=== PATIENT | female | born 1970 | race African-American/Black ===

== ENCOUNTER 2016-11-16 14:55 | Emergency (ER) | payer MEDICAID ==
--- NOTE | 2016-11-16 16:11 | ER Document Report ---
ED Medical Screen (RME) - General Chief Complaint: Breathing Difficulty Stated Complaint: SHORTNESS OF BREATH Time Seen by Provider: 11/16/16 16:08 Notes: Patient states that she has scleroderma. She states for approximately 2 weeks she has had increasing cough and shortness of breath with exertion. She denies any pain. She states she has been using her inhaler with no relief. She does smoke. She denies any history of COPD or asthma. No history of congestive heart failure. She states she has had a cough productive of green sputum. TRAVEL OUTSIDE OF THE [place] IN LAST 30 DAYS: No - Related Data Allergies/Adverse Reactions: No Known Allergies Allergy (Verified 11/16/16 15:14) Past Medical History - Social History Chew tobacco use (# tins/day): No Frequency of alcohol use: None Drug Abuse: None Renal/ Medical History: Denies: Hx Peritoneal Dialysis Psychiatric Medical History: Denies: Hx Depression Past Surgical History: Reports: Hx Section - x3, Hx Hysterectomy - Immunizations Hx Diphtheria, Pertussis, Tetanus Vaccination: - unknown Physical Exam - Vital signs Vitals: Temp Pulse Resp BP Pulse Ox 98.1 F 81 13 94/68 L 100 11/16/16 15:15 11/16/16 15:15 11/16/16 15:15 11/16/16 15:15 11/16/16 15:15 Course - Vital Signs Vital signs: Temp Pulse Resp BP Pulse Ox 98.1 F 81 13 94/68 L 100 11/16/16 15:15 11/16/16 15:15 11/16/16 15:15 11/16/16 15:15 11/16/16 15:15
[2016-11-16 16:59] LABS: ABSOLUTE BASOPHILS # (AUTO) 0.1 10^3/uL (0.0-0.2); ABSOLUTE EOSINOPHILS # (AUTO) 0.3 10^3/uL (0.0-0.6); ABSOLUTE LYMPHOCYTES (AUTO) 1.8 10^3/uL (0.5-4.7); ABSOLUTE MONOCYTES (AUTO) 0.8 10^3/uL (0.1-1.4); ABSOLUTE NEUT (AUTO) 6.6 10^3/uL (1.7-8.2); BASOPHILS % (AUTO) 0.5 % (0-2); EOSINOPHILS % (AUTO) 2.7 % (0-6); HEMATOCRIT 35.6 % (36.0-47.0); HEMOGLOBIN 11.5 g/dL (12.0-15.5); HGB HCT DIFFERENCE -1.1; MEAN CORPUSCULAR HGB CONC 32.3 g/dL (32.0-36.0); MEAN CORPUSCULAR VOLUME 90 fl (80-97); MONOCYTES % (AUTO) 8.6 % (3-13); RED BLOOD COUNT 3.97 10^6/uL (3.72-5.28); RED CELL DISTRIBUTION WIDTH 15.5 % (11.5-14.0); SEGMENTED NEUTROPHILS % (AUTO) 69.2 % (42-78); WHITE BLOOD COUNT 9.5 10^3/uL (4.0-10.5)
--- NOTE | 2016-11-16 17:09 | RADIOLOGY REPORT (SQ) ---
EXAM DESCRIPTION: CHEST PA/LAT COMPLETED DATE/TIME: 11/16/2016 4:23 pm REASON FOR STUDY: sob COMPARISON: AP chest 06/24/2015 CT chest 06/24/2015 EXAM PARAMETERS: NUMBER OF VIEWS: two views TECHNIQUE: Digital Frontal and Lateral radiographic views of the chest acquired. RADIATION DOSE: NA LIMITATIONS: none FINDINGS: LUNGS AND PLEURA: No opacities, masses or pneumothorax. No pleural effusion. MEDIASTINUM AND HILAR STRUCTURES: No masses or contour abnormalities. HEART AND VASCULAR STRUCTURES: Heart normal size. No evidence for failure. BONES: No acute findings. HARDWARE: None in the chest. OTHER: No other significant finding. IMPRESSION: NO SIGNIFICANT RADIOGRAPHIC FINDING IN THE CHEST. TECHNICAL DOCUMENTATION: JOB ID: [id number] [employer]- All Rights Reserved
[2016-11-16 17:28] LABS: ALANINE AMINOTRANSFERASE 18 U/L (9-52); ALBUMIN 4.1 g/dL (3.5-5.0); ALKALINE PHOSPHATASE 66 U/L (38-126); ANION GAP 12 (5-19); ASPARTATE AMINO TRANSFERASE 18 U/L (14-36); BILIRUBIN,DIRECT 0.4 mg/dL (0.0-0.4); BILIRUBIN,TOTAL 0.4 mg/dL (0.2-1.3); BLOOD UREA NITROGEN 22 mg/dL (7-20); CALCIUM 9.8 mg/dL (8.4-10.2); CARBON DIOXIDE 17 mmol/L (22-30); CHLORIDE 109 mmol/L (98-107); CREATININE RESULT 1.13 mg/dL (0.52-1.25); GLUCOSE 84 mg/dL (75-110); POTASSIUM 4.7 mmol/L (3.6-5.0); SODIUM 137.7 mmol/L (137-145); TOTAL PROTEIN 7.9 g/dL (6.3-8.2)
[2016-11-16] MEDS ORDERED: IPRATROPIUM/ALBUTEROL 0.5-2.5 MG/3 ML AMPUL NEB ONE (18:54)
[2016-11-16] MEDS ORDERED: PREDNISONE 20 MG TABLET PO ONE (18:54)
--- NOTE | 2016-11-16 19:01 | ER Document Report ---
ED Respiratory Problem - General Chief Complaint: Breathing Difficulty Stated Complaint: SHORTNESS OF BREATH Time Seen by Provider: 11/16/16 16:08 Notes: The patient is a 46-year-old female, past medical history scleroderma, decreased lung capacity, presents with several days of cough, shortness of breath and now 2 days of green mucus. Her doctor of podiatry is in [facility]. Patient denies chest pain, syncope, leg swelling, nausea, vomiting, fevers, recent travel or back pain. TRAVEL OUTSIDE OF THE [place] IN LAST 30 DAYS: No - Related Data Allergies/Adverse Reactions: No Known Allergies Allergy (Verified 11/16/16 15:14) Past Medical History - General Information source: Patient - Social History Smoking Status: Current Every Day Smoker Chew tobacco use (# tins/day): No Frequency of alcohol use: None Drug Abuse: None Family History: Reviewed & Not Pertinent Patient has suicidal ideation: No Patient has homicidal ideation: No Renal/ Medical History: Denies: Hx Peritoneal Dialysis Psychiatric Medical History: Denies: Hx Depression Past Surgical History: Reports: Hx Section - x3, Hx Hysterectomy - Immunizations Hx Diphtheria, Pertussis, Tetanus Vaccination: - unknown Hx Pneumococcal Vaccination: 10/26/15 Review of Systems - Review of Systems Notes: REVIEW OF SYSTEMS: CONSTITUTIONAL: -fevers, -chills EENT: -eye pain, -difficulty swallowing, -nasal congestion CARDIOVASCULAR:-chest pain, -syncope. RESPIRATORY: +cough, +SOB GASTROINTESTINAL: -abdominal pain, - nausea, -vomiting, -diarrhea GENITOURINARY: -dysuria, -hematuria MUSCULOSKELETAL: -back pain, -neck pain SKIN: -rash or skin lesions. HEMATOLOGIC: -easy bruising or bleeding. LYMPHATIC: -swollen, enlarged glands. NEUROLOGICAL: -altered mental status or loss of consciousness, -headache, - neurologic symptoms PSYCHIATRIC: -anxiety, -depression. ALL OTHER SYSTEMS REVIEWED AND NEGATIVE. Physical Exam - Vital signs Vitals: Temp Pulse Resp BP Pulse Ox 98.1 F 81 13 94/68 L 100 11/16/16 15:15 11/16/16 15:15 11/16/16 15:15 11/16/16 15:15 11/16/16 15:15 - Notes Notes: PHYSICAL EXAMINATION: GENERAL: Well-appearing, well-nourished and in no acute distress. HEAD: Atraumatic, normocephalic. EYES: Pupils equal round and reactive to light, extraocular movements intact, sclera anicteric, conjunctiva are normal. ENT: nares patent, oropharynx clear without exudates. Moist mucous membranes. NECK: Normal range of motion, supple without lymphadenopathy LUNGS: No respiratory distress. Mild end-expiratory wheezes. HEART: Regular rate and rhythm without murmurs ABDOMEN: Soft, nontender, normoactive bowel sounds. No guarding, no rebound. No masses appreciated. EXTREMITIES: Normal range of motion, no pitting or edema. No cyanosis. NEUROLOGICAL: Cranial nerves grossly intact. Normal speech, normal gait. Normal sensory and motor exams. PSYCH: Normal mood, normal affect. SKIN: Warm, Dry, normal turgor, no rashes or lesions noted. Course - Re-evaluation Re-evalutation: Patient feels much better after steroids and DuoNeb. Instructed patient to continue 4 more days of prednisone and refilled her albuterol. She will follow with her doctor of podiatry. Considered PE, but patient is not hypoxic, tachycardic and is PERC negative. Patient's blood pressure is high 90s/65, which she said is normal for her. Instructed her to drink plenty of fluids. Given strict return precautions and she understands. - Vital Signs Vital signs: Temp Pulse Resp BP Pulse Ox 97.6 F 77 13 126/88 H 96 11/16/16 20:11 11/16/16 20:11 11/16/16 15:15 11/16/16 20:11 11/16/16 20:11 - Laboratory Result Diagrams: 11/16/16 16:25 11/16/16 16:25 Laboratory results interpreted by me: 11/16/16 11/16/16 16:25 16:25 Hgb 11.5 L Hct 35.6 L RDW 15.5 H Chloride 109 H Carbon Dioxide 17 L BUN 22 H Est GFR (Non-Af Amer) 52 L - Diagnostic Test Radiology reviewed: Image reviewed, Reports reviewed Radiology results interpreted by me: CXR: NAD - EKG Interpretation by Me EKG shows normal: Sinus rhythm, [place], Intervals, QRS Complexes, ST-T Waves Rate: Normal Discharge - Discharge Clinical Impression: Bronchospasm with bronchitis, acute Condition: Stable Disposition: HOME, SELF-CARE Additional Instructions: BRONCHITIS WITH BRONCHOSPASM (WHEEZING): You have bronchitis with bronchospasm (wheezing). Sometimes people develop wheezing with a chest cold. This occurs either because of an underlying tendency toward asthma or because the virus itself irritates the bronchial tubes. This irritation causes cough, shortness of breath, and wheezing. Emergency treatment of bronchospasm may include adrenaline shots or bronchodilator aerosol. You may feel lightheaded and have a rapid pulse for an hour or two. Rest and get plenty of fluids. At home, we'll treat you with a bronchodilator inhaler. Corticosteroids may be required for some patients. Until you recover, avoid chemical fumes, dusts, pollens, and exercising in very cold or dry air. If you smoke, stop now! Most cases of bronchitis get better without antibiotics. We prescribe antibiotics when we believe bacteria are damaging your airways, or if there's high risk the bronchitis will worsen into pneumonia. Increase your fluid intake. A cool mist humidifier may make your lungs more comfortable. An expectorant (cough medicine that loosens phlegm) can help. Repeated episodes of bronchitis and bronchospasm may result in lung damage -- for example, chronic bronchitis, recurrent pneumonias, or emphysema. If you develop a fever, increased wheezing, chest pain, or severe shortness of breath, you should contact the doctor immediately. INHALED BRONCHODILATORS: You have received a treatment of and/or prescription for an inhaled bronchodilator -- a medication which stimulates the airways in the lung to dilate. This improves the flow of air in asthma, bronchitis, and emphysema. These medicines have some similarity to adrenaline, and can cause similar side effects: shakiness, racing heart, and a sense of nervousness. These side effects decrease with time. Contact your doctor if these side effects are severe. Do not over-use the medicine. Too-frequent use of the inhaler may make it ineffective. Call your doctor if the inhaler is not controlling your symptoms at the prescribed doses. STEROID MEDICATION: You have been given an injection of or oral medicine of the cortisone/ steroid class. This medication is used to control inflammation or allergy. Jackson t is usually only given for a short period of time, until the acute process subsides. There are usually no side effects from short-term use of cortisone-like medications. Some persons feel an increased sense of well-being and are not sleepy at bedtime. Long-term use of cortisone medications is best avoided, unless required for a severe condition. If your condition does not remit, or relapses after the course of corticosteroid medication, you should consult your physician. USE OF ACETAMINOPHEN (Tylenol): Acetaminophen may be taken for pain relief or fever control. It's much safer than aspirin, offering a wider range of "safe" dosages. It is safe during . Some brand names are Tylenol, Panadol, Datril, Anacin 3, Tempra, and Liquiprin. Acetaminophen can be repeated every four hours. The following are maximum recommended dosages: >89 pounds or adults 650 mg to 900 mg Acetaminophen can be repeated every four hours. Maximum dose not to exceed 4000 mg a day. SMOKING: If you smoke, you should stop smoking. The tar and chemicals in cigarette smoke are harmful. Smoking has been shown to cause: emphysema chronic bronchitis lung cancer mouth and throat cancer stomach and pancreas cancer premature aging defects In addition, smoking increases ear and lung infections in children of smokers. FOLLOW-UP CARE: If you have been referred to a physician for follow-up care, call the physician s office for an appointment as you were instructed or within the next two days. If you experience worsening or a significant change in your symptoms, notify the physician immediately or return to the Emergency Department at any time for re-evaluation. Prescriptions: Albuterol Sulfate [Proair HFA Inhalation Aerosol 8.5 gm MDI] 2 puff IH Q4H PRN # 1 mdi PRN Reason: Prednisone [Deltasone 20 mg Tablet] 3 tab PO DAILY 5 Days tablet Referrals: TERESO STAUFFER MD [Primary Care Provider] - Follow up as needed
[2016-11-16 20:15] VITALS: BP 126/88
--- NOTE | 2016-11-16 21:54 | EKG REPORT ---
SEVERITY:- NORMAL ECG - SINUS RHYTHM : Confirmed by: Siddhartha Funes 16-Nov-2016 21:52:36
== END 2016-11-16 20:11 | disposition home or self-care (01) ==
LOC: ER 14:55
DX: J20.9 Acute bronchitis, unspecified (principal); M34.9 Systemic sclerosis, unspecified; R06.02 Shortness of breath; R05 Cough; F17.200 Nicotine dependence, unspecified, uncomplicated
CPT/HCPCS: 93005; 94640; 99285; 36415; 85025; 80053; 84484; 71020; 93010; J7512; J7620

== ENCOUNTER 2018-09-19 18:52 | Emergency (ER) | payer MEDICARE, MEDICAID ==
[2018-09-19] MEDS ORDERED: ONDANSETRON HCL INJ/PF 4 MG/2 ML SDV IV ONE (20:38)
[2018-09-19] MEDS ORDERED: NORMAL SALINE 1000 ML 1,000 ML IV ONE (20:38)
[2018-09-19] MEDS ORDERED: DIPHENHYDRAMINE HCL 50 MG/ML VIAL IV ONE (20:41)
[2018-09-19] MEDS ORDERED: PROCHLORPERAZINE EDISYLATE INJ 10 MG/2 ML VIAL IV ONE (20:41)
--- NOTE | 2018-09-19 20:41 | ER Document Report ---
ED Medical Screen (RME) - General Chief Complaint: Cough Stated Complaint: COUGH Time Seen by Provider: 09/19/18 20:33 Primary Care Provider: TERESO STAUFFER MD [Primary Care Provider] - Follow up as needed Information source: Patient Notes: Patient presents complaining of cold symptoms for the past 2 weeks. Patient had productive cough with green sputum and intermittent fevers. Patient states she has had headache that has seemed to have worsened to the right side of her head. Patient reports nausea and vomiting and inability to keep her usual medications down for the past 2 days. She was supposed to have an outpatient MRI for evaluation of headache pain and intermittent left upper extremity weakness. Patient states she will occasionally just have a drop of the wrist. Patient does have a history of scleroderma and lupus like symptoms. I have greeted and performed a rapid initial assessment of this patient. A comprehensive ED assessment and evaluation of the patient, analysis of test results and completion of the medical decision making process will be conducted by additional ED providers. TRAVEL OUTSIDE OF THE [place] IN LAST 30 DAYS: No - Related Data Allergies/Adverse Reactions: No Known Allergies Allergy (Verified 09/19/18 18:58) Past Medical History Renal/ Medical History: Denies: Hx Peritoneal Dialysis Psychiatric Medical History: Denies: Hx Depression Past Surgical History: Reports: Hx Section - x3, Hx Hysterectomy - Immunizations Hx Diphtheria, Pertussis, Tetanus Vaccination: - unknown Physical Exam - Vital signs Vitals: Temp Pulse Resp BP Pulse Ox 99.1 F 89 20 140/88 H 95 09/19/18 19:46 09/19/18 19:46 09/19/18 19:46 09/19/18 19:46 09/19/18 19:46 - Respiratory Respiratory status: No respiratory distress Breath sounds: Productive cough, Rhonchi - Neurological Katelyn Coma Scale Eye Opening: Spontaneous [place] Coma Scale Verbal: Oriented Katelyn Coma Scale Motor: Obeys Commands Katelyn Coma Scale Total: 15 Course - Re-evaluation Re-evalutation: 09/19/18 20:40 Contacted MRI and discuss orders that patient had as an outpatient today that she was unable to complete. They stated that she had an MRI noncontrast of the head ordered. We will place this order and tonight given her persistent headache symptoms. - Vital Signs Vital signs: Temp Pulse Resp BP Pulse Ox 99.1 F 89 20 140/88 H 95 09/19/18 19:46 09/19/18 19:46 09/19/18 19:46 09/19/18 19:46 09/19/18 19:46 Doctor's Discharge - Discharge Referrals: TERESO STAUFFER MD [Primary Care Provider] - Follow up as needed
--- NOTE | 2018-09-19 21:39 | RADIOLOGY REPORT (SQ) ---
EXAM DESCRIPTION: XR CHEST 2 VIEWS COMPLETED DATE/TME: 09/19/2018 20:44 CLINICAL HISTORY: 48 years, Female, cough COMPARISON: 11/16/2016 chest NUMBER OF VIEWS: 2 TECHNIQUE: 2 view chest LIMITATIONS: None. FINDINGS: Heart size is normal. Slightly coarsened interstitial changes bilaterally. Findings could reflect interstitial pneumonitis, with interstitial edema not excluded entirely. No pneumothorax. Lungs are otherwise clear IMPRESSION: Coarse interstitial changes, likely reflecting interstitial pneumonitis. copyright 2010 [employer]- All Rights Reserved
--- NOTE | 2018-09-19 23:18 | RADIOLOGY REPORT (SQ) ---
EXAM DESCRIPTION: MRI brain without contrast Completed date and time 09/19/2018 10:26 PM CLINICAL HISTORY: [place], intermittent L arm weakness COMPARISON: None TECHNIQUE: Multiplanar images of the brain were obtained without the administration of intravenous contrast FINDINGS: Ventricles and sulci appear within normal limits for the patient's age. No evidence of midline shift or mass effect. No abnormal parenchymal signal noted. No areas of restricted diffusion to suggest acute infarct. There is mucosal thickening in ethmoid air cells, left frontal sinus maxillary and sphenoid sinus with a tiny amount of fluid. No extra axial fluid collection. Prominent perivascular spaces in the high frontoparietal regions bilaterally. Symmetric flow voids in the carotid siphons. IMPRESSION: No evidence of acute infarct Inflammatory sinus disease
[2018-09-20] MEDS ORDERED: PROCHLORPERAZINE EDISYLATE INJ 10 MG/2 ML VIAL ONE (00:42)
[2018-09-20] MEDS ORDERED: DIPHENHYDRAMINE HCL 50 MG/ML VIAL ONE (00:42)
[2018-09-20] MEDS ORDERED: BENZONATATE 100 MG CAPSULE PO ONE (01:55)
[2018-09-20] MEDS ORDERED: ONDANSETRON ODT 4 MG TAB (6 TAB/ER DISP) PO PRN (02:46)
--- NOTE | 2018-09-20 02:48 | ER Document Report ---
ED General - General Chief Complaint: Cough Stated Complaint: COUGH Time Seen by Provider: 09/19/18 20:33 Primary Care Provider: TERESO STAUFFER MD [Primary Care Provider] - Follow up in 3-5 days Notes: Patient is a pleasant 48-year-old female with a history of scleroderma who presents with complaint of vomiting. She has had the cough for last several days. Today she started having some vomiting and was unable to hold on her medications. She says because of her scleroderma she does have chronic lung disease her symptoms causes her to cough and have these exacerbations. She denies any wheezing. She is a non-smoker. No fevers. No other complaints at this time. TRAVEL OUTSIDE OF THE [place] IN LAST 30 DAYS: No - Related Data Allergies/Adverse Reactions: No Known Allergies Allergy (Verified 09/19/18 18:58) Past Medical History - General Information source: Patient - Social History Smoking Status: Unknown if Ever Smoked Frequency of alcohol use: None Drug Abuse: None Family History: Reviewed & Not Pertinent Renal/ Medical History: Denies: Hx Peritoneal Dialysis Psychiatric Medical History: Denies: Hx Depression Past Surgical History: Reports: Hx Section - x3, Hx Hysterectomy - Immunizations Hx Diphtheria, Pertussis, Tetanus Vaccination: - unknown Hx Pneumococcal Vaccination: 10/26/15 Review of Systems - Review of Systems Notes: My Normal Review Basic REVIEW OF SYSTEMS: CONSTITUTIONAL : Denies fever, chills, or sweats. Denies recent illness. EENT: Denies eye, ear, throat, or mouth pain or symptoms. Denies nasal or sinus congestion. CARDIOVASCULAR: Denies chest pain. RESPIRATORY: Cough GASTROINTESTINAL: Denies abdominal pain. vomiting MUSCULOSKELETAL: Denies neck or back pain or joint pain or swelling. SKIN: Denies rash or skin lesions. NEUROLOGICAL: Denies altered mental status or loss of consciousness. ALL OTHER SYSTEMS REVIEWED AND NEGATIVE. Physical Exam - Vital signs Vitals: Temp Pulse Resp BP Pulse Ox 99.1 F 89 20 140/88 H 95 09/19/18 19:46 09/19/18 19:46 09/19/18 19:46 09/19/18 19:46 09/19/18 19:46 - Notes Notes: General Appearance: Well nourished, alert, cooperative, no acute distress, no obvious discomfort. Well-appearing. Vitals: reviewed, See vital signs table. Eyes: PERRL, EOMI, Conjuctiva clear Mouth: No decreasd moisture Throat: No tonsillar inflammation, No airway obstruction, No lymphadenopathy Neck: Supple, no neck tenderness, No thyromegaly Lungs: No wheezing, No rales, No rhonci, No accessory muscle use, good air exchange bilaterally. Heart: Normal rate, Regular rythm, No murmur, no rub Abdomen: Normal BS, soft, No rigidity, No abdominal tenderness, No guarding, no rebound, no abdominal masses, no organomegaly Extremities: good pulses in all extremities, no swelling or tenderness in the extremities, no edema. Skin: warm, dry, appropriate color, no rash Neuro: speech clear, oriented x 3, normal affect, responds appropriately to questions. Course - Re-evaluation Re-evalutation: 09/20/18 05:52 Patient is feeling improved. She says she feels much improved after the IV fluids and Zofran. She looks very well. Her lung echeverria are clear. Feel she safe to be discharged home. I will prescribe her Zofran to take for nausea. She has no abdominal pain and no fever. He denies any indication for CT scan or imaging of her abdomen. Clinically she looks very well. I encouraged her return to ER if she develops abdominal pain, recurrent vomiting, fevers, difficulty breathing, or if she feels is worsening in any way. Patient agrees with plan and will be discharged home. Patient to follow-up with her doctor next couple of days. Dictation of this chart was performed using voice recognition software; therefore, there may be some unintended grammatical errors. - Vital Signs Vital signs: Temp Pulse Resp BP Pulse Ox 98.9 F 88 20 139/85 H 96 09/20/18 03:00 09/20/18 03:00 09/20/18 03:00 09/20/18 03:00 09/20/18 03:00 Discharge - Discharge Clinical Impression: Cough, Vomiting Condition: Good Disposition: HOME, SELF-CARE Additional Instructions: Please return to the ER immediately if you develop difficulty breathing, fevers, recurrent vomiting, or feel unwell. You can take the zofran, nausea medicine, as 1 tablet dissolved in your mouth every 4 hours. Please follow up with your doctor on Monday or Monday for reevaluation. Prescriptions: Benzonatate [Tessalon Perle 100 mg Capsule] 100 mg PO Q8HP PRN #20 cap PRN Reason: Ondansetron [Zofran Odt 4 mg Tablet] 1 tab PO Q4H PRN #15 tab.rapdis PRN Reason: For Nausea/Vomiting Referrals: TERESO STAUFFER MD [Primary Care Provider] - Follow up in 3-5 days
[2018-09-20 03:11] VITALS: BP 139/85
== END 2018-09-20 03:11 | disposition home or self-care (01) ==
LOC: ER 18:52
DX: R05 Cough (principal); R11.10 Vomiting, unspecified
CPT/HCPCS: 99284; 96361; 96374; 96375; 70551; 71046; A9270; J1200; J0780; J7030

== ENCOUNTER → 2019-07-18 | Outpatient (CLI) | payer MEDICARE, MEDICAID ==
--- NOTE | 2019-07-18 10:56 | ER RDC ASSESSMENT REPORT ---
Intake - In the Last 14 days Have you traveled outside [place]?: No Have you been in close contact with someone CONFIRMED: No Worked in Healthcare?: No - Symptoms Subjective Fever([place] feverish): Yes Chills: Yes Muscule Aches: Yes Runny Nose: Yes Sore Throat: No Cough (New or worsening chronic cough): Yes Shortness of breath: Yes Nausea or Vomiting: Yes Headache: Yes Abdominal Pain: Yes Diarrhea(3 or more loose stools in last 24 hours): Yes - Do you have any of the following Chronic lung disease: Asthma or emphysema or COPD: Yes Chronic Lung Disease Comment: asthma Cystic Fibrosis: No Diabetes: No High Blood Pressure: No Cardiovascular Disease: No Chronic Kidney Disease: No Chronic Liver Disease: No Chronic blood disorder like Sickle Cell Disease: No Weak immune system due to disease or medication: Yes Immune System Comment: scleroderma, lupus Neurologic condition that limits movement: No Developmental delay - Moderate to Severe: No Recent (within past 2 weeks) or current : No Morbid Obesity (>100 pounds over ideal weight): No - Objective Temperature: 97.3 F Pulse Rate: 89 Respiratory Rate: 18 Blood Pressure: 137/78 O2 Sat by Pulse Oximetry: 96 Objective: Given above, testing performed: If Testing Performed: Test Specimen Type Sent to General - General Information source: Patient Notes: Patient presents to the RDC for evaluation of upper respiratory symptoms. Patient will be screened for the chance virus. - HPI Onset: Other - 6 days Onset/Duration: Persistent Associated symptoms: Body/muscle aches, Nonproductive cough, Fever, Nausea, Vomiting, Shortness of breath. denies: Sore throat Exacerbated by: Denies Relieved by: Denies - Related Data Allergies/Adverse Reactions: No Known Allergies Allergy (Verified 09/19/18 18:58) Past Medical History - General Information source: Patient - Social History Smoking Status: Current Every Day Smoker Lives with: Family Family History: Reviewed & Not Pertinent - Medical History Medical History: Other - Lupus, scleroderma Pulmonary Medical History: Reports: Hx Asthma Renal/ Medical History: Denies: Hx Peritoneal Dialysis Psychiatric Medical History: Denies: Hx Depression Past Surgical History: Reports: Hx Section - x3, Hx Hysterectomy Physical Exam - General General appearance: Appears well, Alert In distress: None - HEENT Head: Normocephalic Eyes: Normal Nasal: Clear rhinorrhea Mouth/Lips: Normal Mucous membranes: Normal Pharynx: Normal. No: Erythema, Exudate, Tonsillar hypertrophy Neck: Normal, Supple - Respiratory Respiratory status: No respiratory distress. No: Cyanosis, Labored, Tachypnea Chest status: Nontender Breath sounds: Nonproductive cough. No: Rales, Rhonchi, Stridor, Wheezing Chest palpation: Normal - Cardiovascular Rhythm: Regular Heart sounds: S1 appreciated, S2 appreciated - Extremities General upper extremity: Normal inspection, Normal ROM General lower extremity: Normal inspection, Normal ROM - Neurological Neuro grossly intact: Yes Cognition: Normal [place] Coma Scale Eye Opening: Spontaneous [place] Coma Scale Verbal: Oriented Katelyn Coma Scale Motor: Obeys Commands [place] Coma Scale Total: 15 - Psychological Associated symptoms: Normal affect, Normal mood Diagnostic Results Laboratory Results: The patient was evaluated during the global Covid 19 pandemic, and that diagnosis was suspected/considered upon their initial presentation. Their evaluation, treatment and testing was consistent with current guidelines for patients who present with complaints or symptoms that may be related to Covid 19. Patient presents with upper respiratory symptoms worrisome for possible Covid 19. Patient does not have emergency worrying symptoms such as difficulty breathing, shortness of breath, chest pain, pressure, confusion or cyanosis. Patient appears suitable for discharge as they are not of an advanced age, do not have any chronic medical conditions such as diabetes, CAD, immune deficiency, chronic lung disease or chronic kidney disease. Patient's vital signs are stable and patient is nontoxic in appearance. Good return precautions have been discussed with patient, patient verbalized understanding and is agreeable with discharge plan of care at this time. Labs- Entire Visit 07/18/19 07/18/19 11:02 11:03 Influenza A (Rapid) NEGATIVE Influenza B (Rapid) NEGATIVE Group A Strep Rapid NEGATIVE Patient Education/Counseling Counseling/Education: Patient was provided with discharge information including: As a person under investigation for Covid 19, the [place] department of Health and Human Services, division of public health advises you to adhere to the following guidance until your test results are reported to you. If your test result is positive, you will receive additional information from your provider and your local health department at that time. Remain at home until you are cleared by the health provider or public health authorities. Keep a log of visitors to your home, notify any visitors to your home of your isolation status. If you plan to move to a new address or leave the county, notify the local health department in your County. Call your doctor or seek care if you have an urgent medical need. Before seeking medical care, call ahead to get instructions from the provider before arriving at the medical office clinic or hospital. Notify them that you are being tested for the virus that causes Covid 19 so that arrangements can be made, as necessary, to prevent transmission to others in the healthcare setting. Next, notify the local health department in your county. If a medical emergency arises and you need to call 911, inform the first responders that you are being tested for the virus that causes Covid 19. Next, notify the local health department in your county. RDC Discharge - Discharge Clinical Impression: covid 19 screening Upper respiratory infection Qualifiers: URI type: unspecified URI Qualified Code(s): J06.9 - Acute upper respiratory infection, unspecified Condition: Stable Disposition: Home; Selfcare
[2019-07-18 11:32] VITALS: BP 137/78
[2019-07-18 12:11] LABS: A TYPE INFLUENZA AG NEGATIVE (NEGATIVE)
[2019-07-18 12:12] LABS: B INFLUENZA AG NEGATIVE (NEGATIVE)
== END ==
LOC: RDC 10:46
PROVIDERS: ATTEND Nurse Practitioner Family
DX: J06.9 Acute upper respiratory infection, unspecified (principal); Z20.828 Contact with and (suspected) exposure to other viral communicable diseases
CPT/HCPCS: 87070; 87635; 87804; 87880

== ENCOUNTER → 2019-09-04 | Outpatient (CLI) | payer MEDICAID, MEDICARE ==
--- NOTE | 2019-09-04 12:40 | RADIOLOGY REPORT (SQ) ---
EXAM DESCRIPTION: U/S ABDOMEN LTD W/DOPPLER IMAGES COMPLETED DATE/TIME: 09/04/2019 9:51 am REASON FOR STUDY: R10.9 UNSPECIFIED ABDOMINAL PAIN R10.9 UNSPECIFIED ABDOMINAL PAIN COMPARISON: None. TECHNIQUE: Dynamic and static grayscale images acquired of the abdomen and recorded on PACS. Additio nal selected color Doppler and spectral images recorded. LIMITATIONS: None. FINDINGS: PANCREAS: The visualized portions of the pancreas appear normal. LIVER: Normal contour and echotexture. LIVER VASCULATURE: Hepatopetal directional flow in the portal veins. The hepatic veins are patent. GALLBLADDER: There are multiple echogenic calculi within the gallbladder lumen. The gallbladder wall is normal in thickness and it measures 2 mm. There is no pericholecystic fluid. ULTRASOUND-DETECTED WHALEY'S SIGN: Negative. INTRAHEPATIC DUCTS AND COMMON DUCT: The common bile duct measures 3 mm in diameter. There is no dila tation of the intrahepatic bile ducts. INFERIOR VENA CAVA: Patent. AORTA: No aneurysm. RIGHT KIDNEY: The right kidney measures 10.1 cm in length. There is a cyst in the upper pole of the kidney that measures 1.5 x 1.2 x 1.3 cm. There is no hydronephrosis. PERITONEAL AND RIGHT PLEURAL SPACE: No ascites or effusions. OTHER: No other findings. IMPRESSION: 1. Cholelithiasis without other associated ancillary findings to indicate an acute erica cystitis. 2. 1.5 x 1.2 x 1.3 cm cyst in the upper pole of the low right kidney. TECHNICAL DOCUMENTATION: JOB ID: [id number] 2010 [employer]- All Rights Reserved Reading location - IP/workstation name: [email or web address]
== END ==
LOC: RAD 08:47
PROVIDERS: ATTEND Internal Medicine
DX: K80.20 Calculus of gallbladder without cholecystitis without obstruction (principal); R10.9 Unspecified abdominal pain
CPT/HCPCS: 76705; 93976

== ENCOUNTER 2020-02-10 21:25 | Emergency (ER) | payer OTHER, MEDICARE, MEDICAID ==
[2020-02-10] MEDS ORDERED: IBUPROFEN 800 MG TABLET PO ONE (21:50)
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
[2020-02-10] MEDS ORDERED: IBUPROFEN 800 MG TABLET ONE (23:51)
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
[2020-02-11 01:57] VITALS: BP 140/84
== END 2020-02-11 01:55 | disposition home or self-care (01) ==
LOC: ER 21:25
DX: S16.1XXA Strain of muscle, fascia and tendon at neck level, initial encounter (principal); M54.9 Dorsalgia, unspecified; R51.9 Headache, unspecified; V43.52XA Car driver injured in collision with other type car in traffic accident, initial encounter; F17.210 Nicotine dependence, cigarettes, uncomplicated
CPT/HCPCS: 72050; 72070; 72110; 99283

== ENCOUNTER 2020-02-25 16:36 | Emergency (ER) | payer MEDICARE, MEDICAID ==
--- NOTE | 2020-02-25 17:09 | ER Document Report ---
ED Medical Screen (RME) - General Chief Complaint: Chest Pain Stated Complaint: CHEST PAIN Time Seen by Provider: 02/25/20 17:01 Primary Care Provider: TERESO STAUFFER MD [Primary Care Provider] - Follow up as needed TRAVEL OUTSIDE OF THE [place] IN LAST 30 DAYS: No - HPI Notes: 02/25/20 17:07 49-year-old female with a history of hypertension presents to the emergency room for right sided chest pain that radiates to her right arm that started yesterday around 530 and is been constant, getting progressively worse as time passes. She reports constant pressure, tightness and squeezing with shortness of breath nausea, no vomiting. Patient is a smoker, reports she did have an abnormal stress test done last year, she does follow with a psychometric examiner in [place]. Reports her father did pass away from heart related issues as well as to blood related siblings from her issues. Patient does not take any anticoagulants. Reports she has had chest pain in the past but never had an SD. She does have a history of having a lung nodule. Denies any fevers or chills. I have greeted and performed a rapid initial assessment of this patient. A comprehensive ED assessment and evaluation of the patient, analysis of test results and completion of the medical decision making process will be conducted by additional ED providers. PHYSICAL EXAMINATION: GENERAL: Well-appearing, well-nourished and in no acute distress. EYES: Pupils equal round extraocular movements intact, conjunctiva are normal. NECK: Normal range of motion CV: s1, s2 regular LUNGS: No respiratory distress - Related Data Allergies/Adverse Reactions: No Known Allergies Allergy (Verified 02/10/20 23:47) Past Medical History Pulmonary Medical History: Reports: Hx Asthma Renal/ Medical History: Denies: Hx Peritoneal Dialysis Psychiatric Medical History: Denies: Hx Depression Past Surgical History: Reports: Hx Section - x3, Hx Hysterectomy - Immunizations Hx Diphtheria, Pertussis, Tetanus Vaccination: - unknown Physical Exam - Vital signs Vitals: Temp Pulse Resp BP Pulse Ox 99.3 F 89 20 119/66 99 02/25/20 16:59 02/25/20 16:59 02/25/20 16:59 02/25/20 16:59 02/25/20 16:59 Course - Vital Signs Vital signs: Temp Pulse Resp BP Pulse Ox 99.3 F 89 20 119/66 99 02/25/20 16:59 02/25/20 16:59 02/25/20 16:59 02/25/20 16:59 02/25/20 16:59 Doctor's Discharge - Discharge Referrals: TERESO STAUFFER MD [Primary Care Provider] - Follow up as needed
--- NOTE | 2020-02-25 17:27 | RADIOLOGY REPORT (SQ) ---
EXAM DESCRIPTION: CHEST SINGLE VIEW IMAGES COMPLETED DATE/TIME: 02/25/2020 5:16 pm REASON FOR STUDY: chest pain and sob COMPARISON: 09/19/2018 EXAM PARAMETERS: NUMBER OF VIEWS: One view. TECHNIQUE: Single frontal radiographic view of the chest acquired. RADIATION DOSE: NA LIMITATIONS: None. FINDINGS: LUNGS AND PLEURA: Chronic interstitial changes. No acute infiltrate or effusion. No mass . MEDIASTINUM AND HILAR STRUCTURES: No masses. Contour normal. HEART AND VASCULAR STRUCTURES: Heart normal in size. Normal vasculature. BONES: No acute findings. HARDWARE: None in the chest. OTHER: No other significant finding. IMPRESSION: Chronic lung changes with no acute cardiopulmonary findings. TECHNICAL DOCUMENTATION: JOB ID: [id number] 2010 [employer]- All Rights Reserved Reading location - IP/workstation name: [email or web address]
[2020-02-25] MEDS ORDERED: HYDROCODONE/ACETAMINOPHEN 5-325 MG TABLET PO ONE (18:04)
[2020-02-25] MEDS ORDERED: CYCLOBENZAPRINE HCL 10 MG TABLET PO ONE (18:04)
--- NOTE | 2020-02-25 18:10 | ER Document Report ---
ED General - General TRAVEL OUTSIDE OF THE [place] IN LAST 30 DAYS: No - Related Data Home Medications: List reviewed at bedside with patient <LAILA BROWN - Last Filed: 02/25/20 20:55> <AURY ZAVALA JR - Last Filed: 02/25/20 21:50> - General Chief Complaint: Chest Pain Stated Complaint: CHEST PAIN Time Seen by Provider: 02/25/20 17:01 Primary Care Provider: TERESO STAUFFER MD [Primary Care Provider] - Follow up as needed - HPI Notes: Patient is a 49-year-old female with a history of lupus and scleroderma who presents to the emergency department for evaluation of chest pain. She states yesterday while she was making dinner she developed a right sided dull and aching chest pain. It was bothersome but insignificant. She states the pain was with her throughout the evening, present when she woke up today. Later this afternoon she was at home and her pain became worse. She states that it became more intense, with associated shortness of breath and nausea. It began radiating into her shoulder and upper arm. She states the pain is worsened by deep breaths, by moving, twisting, by placing her arm up in the air to get her arm into a coat. Nothing seems to have made it better. The patient does follow with a dining room host/hostess in [place]. She states that they have not performed a heart catheterization, as she would like to put that off if possible. She states they are looking for medical ways to control her pain, and other possible etiologies for her pain, likely secondary to the SLE. (LAILA BROWN) - Related Data Allergies/Adverse Reactions: No Known Allergies Allergy (Verified 02/10/20 23:47) Past Medical History - General Information source: Patient - Social History Smoking Status: Current Some Day Smoker Family History: Reviewed & Not Pertinent - Past Medical History Cardiac Medical History: Reports: Hx Hypertension Pulmonary Medical History: Reports: Hx Asthma Renal/ Medical History: Denies: Hx Peritoneal Dialysis GI Medical History: Reports: Hx Gastroesophageal Reflux Disease Psychiatric Medical History: Denies: Hx Depression Past Surgical History: Reports: Hx Section - x3, Hx Hysterectomy - Immunizations Hx Diphtheria, Pertussis, Tetanus Vaccination: - unknown Hx Pneumococcal Vaccination: 10/26/15 <LAILA BROWN - Last Filed: 02/25/20 20:55> - Medical History Notes: Systemic lupus erythematosus, scleroderma (LAILA BROWN) Review of Systems - Review of Systems Constitutional: No symptoms reported EENT: No symptoms reported Cardiovascular: See HPI Respiratory: See HPI Gastrointestinal: No symptoms reported Genitourinary: No symptoms reported Musculoskeletal: See HPI Skin: No symptoms reported Neurological/Psychological: No symptoms reported <LAILA BROWN - Last Filed: 02/25/20 20:55> Physical Exam <LAILA BROWN - Last Filed: 02/25/20 20:55> - Vital signs Vitals: Temp Pulse Resp BP Pulse Ox 99.3 F 89 20 119/66 99 02/25/20 16:59 02/25/20 16:59 02/25/20 16:59 02/25/20 16:59 02/25/20 16:59 - Notes Notes: Vital signs reviewed, please refer to chart. Head is normocephalic, atraumatic. Pupils equal round, reactive to light. Neck is supple without meningismus. Heart is regular rate and rhythm. Lungs are clear to auscultation bilaterally. Chest wall is markedly tender to palpation with increased tension throughout the anterior pectoralis muscle on the right. She is markedly tender with increased tension in the anterior head of the biceps as well on the right, as well as the trapezius muscles. Neurovascularly intact of the right upper extremity. Abdomen is soft, nontender, normoactive bowel sounds throughout. Extremities without cyanosis, clubbing. Posterior calves are nontender. Peripheral pulses are equal. Skin is warm and dry. Patient is awake, alert, neurological exam is nonfocal. (LAILA BROWN) Course - Laboratory Result Diagrams: 02/25/20 18:00 02/25/20 18:00 - Diagnostic Test Radiology reviewed: Reports reviewed <LAILA BROWN - Last Filed: 02/25/20 20:55> - Laboratory Result Diagrams: 02/25/20 18:00 02/25/20 18:00 - Diagnostic Test Radiology reviewed: Reports reviewed - chronic lung changes <AURY ZAVALA JR - Last Filed: 02/25/20 21:50> - Re-evaluation Re-evalutation: 02/25/20 18:10 Patient presents to the emergency department for evaluation of chest pain. It is reproducible. Is made is made worse by movement. Laboratory investigations and EKG are ordered. Troponin is unremarkable initially. I will treat her as a musculoskeletal pain with Jonathon Batista. She is currently stable, we will con heikeue to monitor. 02/25/20 20:55 Patient continued to have some pain, she was further medicated with Toradol, morphine. She is feeling improved. Again my strong suspicion is that this pain is musculoskeletal in etiology. It hurts to move. It hurts to touch. She has significant tension in the muscles overlying her painful areas. I explained to the patient that her troponin is going to be repeated. Assuming it is undetectable, as I suspect it will be, the patient will be sent home with muscle relaxers and close follow-up with her primary care provider. She is amenable to this plan. Repeat troponin will be followed up by Dr. Zavala. If she develops any new symptoms while she is here she is told she needs to report these immediately so that they can be addressed. Otherwise, again if labs are unremarkable as expected, the patient will follow up closely with cardiology and Dr. Stauffer. (LAILA BROWN) - Vital Signs Vital signs: Temp Pulse Resp BP Pulse Ox 99.3 F 89 19 144/87 H 100 02/25/20 16:59 02/25/20 16:59 02/25/20 20:04 02/25/20 20:04 02/25/20 20:04 - Laboratory Laboratory results interpreted by me: 02/25/20 02/25/20 18:00 18:00 RBC 3.50 L Hgb 10.3 L Hct 32.5 L MCHC 31.7 L RDW 15.2 H Creatine Kinase 184 H 02/25/20 21:47 cpk high but trop neg x 2 (AURY ZAVALA JR) - Diagnostic Test Radiology results interpreted by me: 02/25/20 18:10 Chest X-Ray 02/25/20 17:07 IMPRESSION: Chronic lung changes with no acute cardiopulmonary findings. (LAILA BROWN) - EKG Interpretation by Me Additional EKG results interpreted by me: 02/25/20 18:10 Sinus mechanism with a rate of 87 bpm. Normal axis and intervals. No acute ST changes concerning for ischemia or infarction. (FRIES,LUNDYN M) Critical Care Note <AURY ZAVALA A - Last Filed: 02/25/20 21:50> - Critical Care Note Comments: Maira advised me of pts sx and case and labs , awaiting final trop..this returned neg as well with increase in CPK (AURY ZAVALA JR) Discharge <LAILA BROWN M - Last Filed: 02/25/20 20:55> <TATIANAAURY Aditi RUSH - Last Filed: 02/25/20 21:50> - Discharge Clinical Impression: Chest wall pain Condition: Stable Disposition: HOME, SELF-CARE Instructions: Chest Wall Pain ([facility]), Chest Pain of Unclear Cause ([facility]) Additional Instructions: Based on your exam and your blood work, it seems likely that your pain is from your chest wall. Please follow-up closely with your primary care provider as well as your dining room host/hostess. Take muscle relaxer as needed for pain, please watch for drowsiness and dizziness with this medication. If you develop worsening or new concerning symptoms of any sort, please return immediately to the emergency department for evaluation. Prescriptions: Cyclobenzaprine HCl [Flexeril 10 mg Tablet] 10 mg PO TIDP PRN #15 tab PRN Reason: Referrals: TERESO STAUFFER MD [Primary Care Provider] - Follow up as needed
[2020-02-25 18:28] LABS: ABSOLUTE EOSINOPHILS # (AUTO) 0.2 10^3/uL (0.0-0.6); ABSOLUTE LYMPHOCYTES (AUTO) 0.9 10^3/uL (0.5-4.7); ABSOLUTE MONOCYTES (AUTO) 0.4 10^3/uL (0.1-1.4); ABSOLUTE NEUT (AUTO) 3.5 10^3/uL (1.7-8.2); BASOPHILS % (AUTO) 0.6 % (0-2); EOSINOPHILS % (AUTO) 4.9 % (0-6); HEMATOCRIT 32.5 % (36.0-47.0); HEMOGLOBIN 10.3 g/dL (12.0-15.5); LYMPHOCYTES % (AUTO) 17.4 % (13-45); MEAN CORPUSCULAR HEMOGLOBIN 29.4 pg (27.0-33.4); MEAN CORPUSCULAR HGB CONC 31.7 g/dL (32.0-36.0); MEAN CORPUSCULAR VOLUME 93 fl (80-97); MONOCYTES % (AUTO) 8.4 % (3-13); PLATELET COUNT 228 10^3/uL (150-450); RED CELL DISTRIBUTION WIDTH 15.2 % (11.5-14.0); SEGMENTED NEUTROPHILS % (AUTO) 68.7 % (42-78); TOTAL CELLS COUNTED % (AUTO) 100 %; WHITE BLOOD COUNT 5.1 10^3/uL (4.0-10.5)
--- NOTE | 2020-02-25 18:45 | EKG REPORT ---
SEVERITY:- ABNORMAL ECG - SINUS RHYTHM PROBABLE LEFT ATRIAL ABNORMALITY PROBABLE LEFT VENTRICULAR HYPERTROPHY : Confirmed by: Ronald Barbosa MD 25-Feb-2020 18:45:16
[2020-02-25 18:49] LABS: ALBUMIN 3.9 g/dL (3.5-5.0); ALKALINE PHOSPHATASE 69 U/L (38-126); ANION GAP 6 (5-19); ASPARTATE AMINO TRANSFERASE 23 U/L (14-36); BILIRUBIN,DIRECT 0.1 mg/dL (0.0-0.4); BILIRUBIN,TOTAL 0.2 mg/dL (0.2-1.3); BLOOD UREA NITROGEN 11 mg/dL (7-20); CALCIUM 9.1 mg/dL (8.4-10.2); CARBON DIOXIDE 30 mmol/L (22-30); CHLORIDE 104 mmol/L (98-107); CREATINE KINASE 184 U/L (30-135); GLUCOSE 82 mg/dL (75-110); POTASSIUM 3.6 mmol/L (3.6-5.0); TOTAL PROTEIN 7.3 g/dL (6.3-8.2)
[2020-02-25 19:02] LABS: CREATINE KINASE MB 1.13 ng/mL (<4.55)
[2020-02-25 19:08] LABS: TROPONIN I < 0.012 ng/mL
[2020-02-25] MEDS ORDERED: KETOROLAC TROMETHAMINE INJ/PF 30 MG/1 ML SDV IV ONE (20:05)
[2020-02-25] MEDS ORDERED: MORPHINE SULFATE 10 MG/ML INJ IV ONE (20:05)
[2020-02-25 22:09] VITALS: BP 134/88
== END 2020-02-25 22:09 | disposition home or self-care (01) ==
LOC: ER 16:36
DX: R07.89 Other chest pain (principal); M32.9 Systemic lupus erythematosus, unspecified; M34.9 Systemic sclerosis, unspecified; I10 Essential (primary) hypertension; J45.909 Unspecified asthma, uncomplicated; F17.200 Nicotine dependence, unspecified, uncomplicated
CPT/HCPCS: 93005; 99285; 96374; 96375; 36415; 82553; 82550; 85025; 80053; 84484; 71045; 93010; A9270 ×2; J1885; J2270

== ENCOUNTER 2020-03-11 16:14 | Emergency (ER) | payer MEDICARE, MEDICAID ==
--- NOTE | 2020-03-11 16:26 | ER Document Report ---
ED Medical Screen (RME) - General Chief Complaint: Shortness Of Breath Stated Complaint: SHORT OF BREATH,COUGH,CONGESTION Time Seen by Provider: 03/11/20 16:20 Primary Care Provider: TERESO STAUFFER MD [Primary Care Provider] - Follow up as needed Notes: HPI: 49-year-old female with history of scleroderma and lupus who is on immune modulators sent over for evaluation by Dr. Dumont regulation of shortness of breath and flulike symptoms over the last 5 days. Patient developed body ache, fatigue 5 days ago developed a cough 4 days ago with more significant fatigue and some intermittent shortness of breath. Shortness of breath has become mildly more pronounced. No fever. She called the office today and was told to come into the emergency department for evaluation PHYSICAL EXAMINATION: Patient with poor circulation in the fingers pulse oximetry with limited pick-up. Lung sounds do appear clear to auscultation, mild tachycardia. Does not become dyspneic with speaking. I have greeted and performed a rapid initial assessment of this patient. A comprehensive ED assessment and evaluation of the patient, analysis of test results and completion of medical decision making process will be conducted by an additional ED providers. Please note that clinical decision making for this patient was made during the 2019 pandemic of novel coronavirus which caused a significant strain on the healthcare system including at this particular facility. Criteria for admission discharge and level of care decisions as well as treatment decisions have necessarily changed TRAVEL OUTSIDE OF THE [place] IN LAST 30 DAYS: No - Related Data Allergies/Adverse Reactions: No Known Allergies Allergy (Verified 02/10/20 23:47) Past Medical History - Past Medical History Cardiac Medical History: Reports: Hx Hypertension Pulmonary Medical History: Reports: Hx Asthma Renal/ Medical History: Denies: Hx Peritoneal Dialysis GI Medical History: Reports: Hx Gastroesophageal Reflux Disease Psychiatric Medical History: Denies: Hx Depression Past Surgical History: Reports: Hx Section - x3, Hx Hysterectomy - Immunizations Hx Diphtheria, Pertussis, Tetanus Vaccination: - unknown Doctor's Discharge - Discharge Referrals: TERESO STAUFFER MD [Primary Care Provider] - Follow up as needed
--- NOTE | 2020-03-11 16:57 | RADIOLOGY REPORT (SQ) ---
EXAM DESCRIPTION: CHEST SINGLE VIEW IMAGES COMPLETED DATE/TIME: 03/11/2020 4:44 pm REASON FOR STUDY: sob COMPARISON: AP view of the chest from 02/25/2020. EXAM PARAMETERS: NUMBER OF VIEWS: One view. TECHNIQUE: An AP view of the chest was obtained. RADIATION DOSE: NA LIMITATIONS: None. FINDINGS: LUNGS AND PLEURA: Unchanged chronic bilateral basilar predominant interstitial opacities. There is no superimposed consolidation, pleural effusion or pneumothorax. MEDIASTINUM AND HILAR STRUCTURES: No mediastinal or hilar contour abnormality. HEART AND VASCULAR STRUCTURES: The cardiac silhouette is borderline enlarged. BONES: No acute findings. HARDWARE: None in the chest. OTHER: No other finding. IMPRESSION: Unchanged chronic bilateral basilar predominant interstitial opacities. There is no sup erimposed acute cardiopulmonary process. TECHNICAL DOCUMENTATION: JOB ID: [id number] 2010 [employer]- All Rights Reserved Reading location - IP/workstation name: [email or web address]
--- NOTE | 2020-03-11 18:19 | ER Document Report ---
ED General - General Chief Complaint: Shortness Of Breath Stated Complaint: SHORT OF BREATH,COUGH,CONGESTION Time Seen by Provider: 03/11/20 16:20 Primary Care Provider: TERESO STAUFFER MD [Primary Care Provider] - Follow up as needed TRAVEL OUTSIDE OF THE [place] IN LAST 30 DAYS: No - HPI Notes: 49-year-old female presents with flulike illness for the past 5 days. Patient s tates that on Monday she felt like she was coming down with something. On Monday she had vomiting and diarrhea. On Monday she developed fever, cough and shortness of breath. She also has having body aches and fatigue. Nonproductive cough. She notes that she is had increased use of her inhalers. She has had decrease food intake for the past 2 days, states she is still tolerating liquids. Also states she had a fever last night. She discussed with her primary care doctor as advised from the emergency department for Covid testing. She denies chest pain or abdominal pain. She has history of scleroderma, she is on hydroxychloroquine, she is not on prednisone currently. - Related Data Allergies/Adverse Reactions: No Known Allergies Allergy (Verified 03/11/20 19:15) Past Medical History - General Information source: Patient - Social History Smoking Status: Unknown if Ever Smoked Family History: Reviewed & Not Pertinent - Past Medical History Cardiac Medical History: Reports: Hx Hypertension Pulmonary Medical History: Reports: Hx Asthma Renal/ Medical History: Denies: Hx Peritoneal Dialysis GI Medical History: Reports: Hx Gastroesophageal Reflux Disease Psychiatric Medical History: Denies: Hx Depression Past Surgical History: Reports: Hx Section - x3, Hx Hysterectomy - Immunizations Hx Diphtheria, Pertussis, Tetanus Vaccination: - unknown Hx Pneumococcal Vaccination: 10/26/15 Review of Systems - Review of Systems Constitutional: Fever, Malaise EENT: No symptoms reported Cardiovascular: denies: Chest pain Respiratory: Cough, Short of breath Gastrointestinal: Poor appetite. denies: Abdominal pain Genitourinary: No symptoms reported Female Genitourinary: No symptoms reported Musculoskeletal: Muscle pain Skin: No symptoms reported Hematologic/Lymphatic: Other - Immunosuppressed Neurological/Psychological: No symptoms reported Physical Exam - Vital signs Vitals: Temp Pulse Resp BP Pulse Ox 98.5 F 85 20 167/96 H 95 03/11/20 16:29 03/11/20 16:29 12/16/20 16:29 03/11/20 16:29 03/11/20 16:29 - General General appearance: Appears well, Alert In distress: None - HEENT Head: Normocephalic, Atraumatic Extraocular movements intact: Yes Pupils: PERRL Neck: Supple - Respiratory Respiratory status: No: Labored, Tachypnea Breath sounds: Other - Coarse sounds at bases - Cardiovascular Rhythm: Regular Heart sounds: Normal auscultation - Abdominal Tenderness: Nontender - Extremities General upper extremity: Normal ROM General lower extremity: Normal ROM. No: Edema - Neurological Neuro grossly intact: Yes Cognition: Normal Orientation: AAOx4 - Psychological Associated symptoms: Normal affect - Skin Skin Temperature: Warm Course - Re-evaluation Re-evalutation: 49-year-old female with symptoms suggestive of viral illness ongoing for 5 days. Afebrile, hemodynamically stable, no hypoxia. Well-appearing on exam, some coarse sounds at bases but overall good air movement, abdomen nontender, does no t appear edematous. Viral illness is certainly a possibility, have ordered the respiratory panel which will include Covid testing. Potentially could be abnormal presentation of heart failure, will check BNP and troponin. Wells' negative. 03/11/20 21:01 No leukocytosis or left shift. Chronic anemia. Electrolytes within normal limits. Creatinine within normal limits. Troponin is negative however there is a BNP elevation which is new, I do not see any documented evidence of heart failure. Respiratory panel is negative for any viruses including COVID. 03/11/20 21:04 Discussed work-up with Dr. Stauffer. We discussed the elevated BNP, he states that she does have a history of pulmonary hypertension which could be a reason for the elevation. He is agreeable to follow her up in clinic and have an echo done, we both have agreed upon holding on Lasix until the echo is performed. 03/11/20 21:11 Patient was updated on her work-up today. She is looking forward to going home and feels comfortable going home. I discussed with her need to call Dr. Stauffer in the morning to discuss getting scheduled for the echo. Her precautions given, stable at time of discharge. - Vital Signs Vital signs: Temp Pulse Resp BP Pulse Ox 98.5 F 85 16 140/89 H 94 03/11/20 16:29 03/11/20 16:29 03/11/20 21:37 03/11/20 21:37 03/11/20 21:37 - Laboratory Results Result Diagrams: 03/11/20 19:12 03/11/20 19:12 Laboratory Results Interpreted: 03/11/20 03/11/20 03/11/20 19:12 19:12 19:12 Hgb 11.2 L Hct 35.2 L MCHC 31.9 L RDW 14.8 H Chloride 108 H NT-Pro-B Natriuret Pep 719 H Critical Laboratory Results Reviewed: No Critical Results - Radiology Results Critical Radiology Results Reviewed: No Critical Results - EKG Interpretation by Me Additional EKG results interpreted by me: EKG is interpreted by me. Sinus rhythm, rate 83. Narrow QRS, QTC within normal limits. No ST segment elevation depression. [facility] Discharge - Discharge Clinical Impression: Viral syndrome, Elevated brain natriuretic peptide (BNP) level Disposition: HOME, SELF-CARE Additional Instructions: Please call Dr. Stauffer tomorrow morning to discuss getting scheduled for an echo. He may continue to use Zofran for any nausea/vomiting and Mucinex for ongoing symptomatic control. Be sure to drink plenty of fluids. Return to the emergency department for any concerning worsening symptoms. Prescriptions: Ondansetron [Zofran Odt 4 mg Tablet] 1 tab PO Q4H PRN #15 tab.rapdis PRN Reason: For Nausea/Vomiting Referrals: TERESO STAUFFER MD [Primary Care Provider] - Follow up as needed
[2020-03-11] MEDS ORDERED: ONDANSETRON 4 MG TAB.RAPDIS PO ONE (18:41)
[2020-03-11] MEDS ORDERED: ACETAMINOPHEN 325 MG TABLET PO ONE (18:41)
[2020-03-11] MEDS ORDERED: GUAIFENESIN 600 MG TABLET.SA PO ONE (18:41)
[2020-03-11 19:33] LABS: ABSOLUTE BASOPHILS # (AUTO) 0.1 10^3/uL (0.0-0.2); ABSOLUTE EOSINOPHILS # (AUTO) 0.2 10^3/uL (0.0-0.6); ABSOLUTE LYMPHOCYTES (AUTO) 1.2 10^3/uL (0.5-4.7); ABSOLUTE MONOCYTES (AUTO) 0.5 10^3/uL (0.1-1.4); ABSOLUTE NEUT (AUTO) 4.3 10^3/uL (1.7-8.2); EOSINOPHILS % (AUTO) 3.8 % (0-6); HEMATOCRIT 35.2 % (36.0-47.0); HEMOGLOBIN 11.2 g/dL (12.0-15.5); LYMPHOCYTES % (AUTO) 18.7 % (13-45); MEAN CORPUSCULAR HEMOGLOBIN 29.6 pg (27.0-33.4); MEAN CORPUSCULAR HGB CONC 31.9 g/dL (32.0-36.0); MEAN CORPUSCULAR VOLUME 93 fl (80-97); MONOCYTES % (AUTO) 8.2 % (3-13); PLATELET COUNT 228 10^3/uL (150-450); RED BLOOD COUNT 3.79 10^6/uL (3.72-5.28); RED CELL DISTRIBUTION WIDTH 14.8 % (11.5-14.0); SEGMENTED NEUTROPHILS % (AUTO) 68.3 % (42-78); TOTAL CELLS COUNTED % (AUTO) 100 %; WHITE BLOOD COUNT 6.3 10^3/uL (4.0-10.5)
[2020-03-11 19:56] LABS: ALBUMIN 4.1 g/dL (3.5-5.0); ALKALINE PHOSPHATASE 84 U/L (38-126); ANION GAP 9 (5-19); ASPARTATE AMINO TRANSFERASE 22 U/L (14-36); BILIRUBIN,DIRECT 0.1 mg/dL (0.0-0.4); BILIRUBIN,TOTAL 0.3 mg/dL (0.2-1.3); BLOOD UREA NITROGEN 9 mg/dL (7-20); CALCIUM 9.1 mg/dL (8.4-10.2); CARBON DIOXIDE 25 mmol/L (22-30); CHLORIDE 108 mmol/L (98-107); GLUCOSE 81 mg/dL (75-110); POTASSIUM 3.7 mmol/L (3.6-5.0)
[2020-03-11 20:14] LABS: NT PRO BNP 719 pg/mL (<125)
[2020-03-11 20:18] LABS: TROPONIN I < 0.012 ng/mL
[2020-03-11 21:42] VITALS: BP 140/89
--- NOTE | 2020-03-11 21:59 | EKG REPORT ---
SEVERITY:- BORDERLINE ECG - SINUS RHYTHM [facility] BY VOLTAGE : Confirmed by: Blessing Daly MD 11-Mar-2020 21:58:25
== END 2020-03-11 21:41 | disposition home or self-care (01) ==
LOC: ER 16:14
DX: B34.9 Viral infection, unspecified (principal); R79.89 Other specified abnormal findings of blood chemistry; J45.909 Unspecified asthma, uncomplicated; D64.9 Anemia, unspecified; R63.0 Anorexia; R06.02 Shortness of breath; R05 Cough; R50.9 Fever, unspecified; R53.83 Other fatigue; R53.81 Other malaise; M79.10 Myalgia, unspecified site; I10 Essential (primary) hypertension; M34.9 Systemic sclerosis, unspecified; Z79.899 Other long term (current) drug therapy; Z20.828 Contact with and (suspected) exposure to other viral communicable diseases
CPT/HCPCS: 99285; 36415; 85025; 0202U ×23; 80053; 84484; 83880; 71045; 93005; 93010; A9270 ×3; S0119